=== PATIENT | male | born 1990 | race Caucasian/White ===

== ENCOUNTER 2021-06-06 19:59 | Emergency (ER) | payer OTHER, SELFPAY ==
[2021-06-06 20:04] VITALS: BP 146/86; PULSE 93; RESP 18; TEMP 36.3; O2SAT 98; BMI 44.9
--- NOTE | 2021-06-06 21:11 | ED.GENADULT ---
HPI - General Adult General Chief complaint: General Medical Stated complaint: left arm abrasion Time Seen by Provider: 06/06/21 21:11 Source: patient Mode of arrival: ambulatory Limitations: no limitations History of Present Illness HPI narrative: Patient comes to the emergency room complaining of an abrasion to the left wrist. 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 Patient has a superficial abrasion to the left wrist. Patient did not sustain any other injuries. Review of Systems Review of Systems: Constitutional : No Weight loss, No Fever, No Chills, No Night Sweats, No Fatigue, No Malaise ENT/Mouth : No Hearing loss, No Ear Pain, No Nasal Congestion, No Sinus Pain, No Hoarseness, No sore throat, No Rhinorrhea, No Swallowing Difficulty Eyes: No Eye Pain, No Swelling, No Redness, No Foreign Body, No Discharge, No Vision Changes Cardiovascular : No Chest Pain, No SOB, No Dyspnea on Exertion, No Orthopnea, No Edema, No Palpitations Respiratory : No Cough, No Sputum, No Wheezing, No Smoke Exposure, No Dyspnea Gastrointestinal : No Nausea, No Vomiting, No Diarrhea, No Constipation, No abdominal Pain, No Hematochezia, No Melena Genitourinary : no irregular bleeding, No Dysuria, No Urinary Frequency, No Hematuria, No Urinary Incontinence, No Urgency, No Flank Pain, No Urinary Flow Changes, No Hesitancy Musculoskeletal : No joint pain, No Myalgias, No Joint Swelling Skin : Superficial abrasion to left wrist Neuro : No Weakness, No Numbness, No Paresthesias, No Loss of Consciousness, No Dizziness, No Headache Psych : No Anxiety/Panic, No Depression, No SI/HI/AH/VH, No Social Issues, Heme/Lymph: No Bruising, No Bleeding,No Lymphadenopathy Endocrine : No Polyuria, No Polydipsia, No Temperature Intolerance PMFSH Past Medical History Medical History No known health problems Social History Social History Advance Directives: No Advance Directives Information Provided: No Physical Exam Vital Signs: Vital Signs: Last Vital Signs Temp 97.4 F 06/06/21 20:04 Pulse 93 06/06/21 20:04 Resp 18 06/06/21 20:04 BP 146/86 H 06/06/21 20:04 Pulse Ox 98 06/06/21 20:04 Body Mass Index 44.9 Const: Other: Appearance: Alert. Oriented X3. No acute distress. Eyes: Pupils equal, round and reactive to light. ENT: Pharynx normal. Neck: Normal inspection. Neck supple. No lymph nodes noted. No crepitus CVS: Normal heart rate and rhythm. Pulses normal. Normal S1 and S2 Respiratory: No respiratory distress. Breath sounds normal. No Wheezing. No rales Abdomen: Soft and nontender. No rigidity. No distention. good BS x4 Skin: Skin warm and dry. Normal skin color. Normal skin turgor. Superficial erythema to the left wrist, no obvious skin breaks Extremities: No lower extremity edema. No lower extremity edema. No Lacerations. No Rash Neuro: Oriented X 3. No motor deficit. No sensory deficit. Moving all extermities. No slurred speech. Course Course Course Narrative: I discussed the risks versus benefits with the patient of starting antiviral therapy and doing blood work. However, the risk of transmission is very low. The medication for HIV prophylaxis may have more side effects/disadvantages then benefits at this point considering the extent of the injury. Patient decided at this time he will not get blood work done. He will follow up with work connection tomorrow. At this time, patient declined antiviral medications/blood work. Discharge Plan Discharge Clinical Impression: Abrasion, Exposure to HIV Patient Disposition: Home, Self-Care Instructions: Abrasion (ED) Additional Instructions: Please follow-up with for connection tomorrow. Please follow-up with your primary care physician tomorrow. If you have any worsening or new symptoms, please return to the emergency room or call 911
--- NOTE | 2021-06-06 21:18 | ED.GENADULT ---
HPI - General Adult General Chief complaint: General Medical Stated complaint: left arm abrasion Time Seen by Provider: 06/06/21 21:11 Source: patient Mode of arrival: ambulatory Limitations: no limitations History of Present Illness HPI narrative: pt comes to the ED c/o an abrassion to the left wrist. 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 pt has no other injuries. PMFSH Past Medical History Medical History No known health problems Social History Social History Advance Directives: No Advance Directives Information Provided: No Physical Exam Vital Signs: Vital Signs: Last Vital Signs Temp 97.4 F 06/06/21 20:04 Pulse 93 06/06/21 20:04 Resp 18 06/06/21 20:04 BP 146/86 H 06/06/21 20:04 Pulse Ox 98 06/06/21 20:04 Body Mass Index 44.9 Discharge Plan Discharge Clinical Impression: Abrasion, Exposure to HIV Patient Disposition: Home, Self-Care Instructions: Abrasion (ED) Additional Instructions: Please follow-up with for connection tomorrow. Please follow-up with your primary care physician tomorrow. If you have any worsening or new symptoms, please return to the emergency room or call 911 Interventions: ED Discharge Assessment Last Done: 06/06/21 21:54 Discharge Date/Time: 06/06/21 21:56
== END 2021-06-06 21:56 | disposition home or self-care (01) ==
PROVIDERS: Emergency Provider Emergency Medicine
DX: S60.812A Abrasion of left wrist, initial encounter (principal); Y04.8XXA Assault by other bodily force, initial encounter; Y93.F9 Activity, other caregiving; Y92.414 Local residential or business street as the place of occurrence of the external cause; Y99.0 Civilian activity done for income or pay
CPT/HCPCS: 99283